=== PATIENT | female | born 1955 | race Caucasian/White ===

== ENCOUNTER 2016-11-29 09:00 | Outpatient (CLI) | payer MEDICARE | END 2016-11-29 09:01 | disposition home or self-care (01) | DX: R00.0 Tachycardia, unspecified (principal) ==

== ENCOUNTER 2016-12-07 10:11 | Day surgery (SDC) | payer MEDICARE ==
[~2016-12-07 10:11] MED LIST: ceFAZolin 2 GM/50 ML 50 ML IV ONE
[2016-12-07] MEDS ORDERED: ONDANSETRON 4 MG/2 ML VIAL IVP ONE (11:00)
[2016-12-07] MEDS ORDERED: fentaNYL 100 MCG/2 ML VIAL IVP ONE (11:00)
[2016-12-07] MEDS ORDERED: PROPOFOL 200 MG/20 ML VIAL IVP ONE (11:00)
[2016-12-07] MEDS ORDERED: MIDAZOLAM 2 MG/2 ML VIAL IVP ONE (11:00)
[2016-12-07] MEDS ORDERED: LIDOCAINE-MPF 2% 5 ML VIAL IM ONE (11:00)
[2016-12-07] MEDS ORDERED: LACTATED RINGERS 1,000 ML IV ONE ×3 (13:00→14:38)
[2016-12-07] MEDS ORDERED: BUPIVACAINE 0.5% PF 30 ML VIAL SUBQ ONE ×2 (14:04)
[2016-12-07] MEDS ORDERED: oxyCOD/ACETAMIN 5 MG/325 MG TABLET PO ONE (15:14)
== END 2016-12-07 10:12 | disposition home or self-care (01) ==
PROC: 05H633Z Insertion of Infusion Device into Left Subclavian Vein, Percutaneous Approach (ICD-10-PCS; principal; 2016-12-07 11:00)
DX: C50.912 Malignant neoplasm of unspecified site of left female breast (principal); C78.00 Secondary malignant neoplasm of unspecified lung; Z79.82 Long term (current) use of aspirin; I49.9 Cardiac arrhythmia, unspecified; R03.0 Elevated blood-pressure reading, without diagnosis of hypertension; Z80.42 Family history of malignant neoplasm of prostate; Z80.49 Family history of malignant neoplasm of other genital organs; E11.9 Type 2 diabetes mellitus without complications; Z92.21 Personal history of antineoplastic chemotherapy; Z79.84 Long term (current) use of oral hypoglycemic drugs
CPT/HCPCS: 36561; A9270; C1788; J0690; J7120

== ENCOUNTER 2017-01-10 16:22 | Emergency (ER) | payer MEDICARE ==
[2017-01-10] MEDS ORDERED: SODIUM CHLORIDE 0.9% 1,000 ML IV ONE (17:10)
[2017-01-10] MEDS ORDERED: IOPAMIDOL-300 100 ML VIAL IVP ONE (17:51)
== END 2017-01-10 19:10 | disposition home or self-care (01) ==
DX: E86.0 Dehydration (principal); C50.919 Malignant neoplasm of unspecified site of unspecified female breast; C78.00 Secondary malignant neoplasm of unspecified lung; K21.9 Gastro-esophageal reflux disease without esophagitis; Z79.82 Long term (current) use of aspirin
CPT/HCPCS: 71275; 99283; 99284; Q9967

== ENCOUNTER 2017-02-28 15:07 | Inpatient (IN) | payer MEDICARE ==
[2017-02-28] MEDS ORDERED: FUROSEMIDE 40 MG/4 ML VIAL IVP STA (18:50)
[2017-02-28] MEDS ORDERED: FUROSEMIDE 40 MG/4 ML VIAL ONE (19:12)
[2017-02-28] MEDS ORDERED: MORPHINE 2 MG/ML SYRINGE IVP PRN (20:08)
[2017-02-28] MEDS ORDERED: ONDANSETRON 4 MG/2 ML VIAL IVP PRN (20:08)
[2017-02-28] MEDS ORDERED: HYDROcod/ACETAM 7.5 MG/325 MG TABLET PO PRN (20:59)
[2017-02-28] MEDS ORDERED: INSULIN NPH HUMAN 100 UNIT/1 ML 10 ML MDV SUBQ SCH (21:00)
[2017-02-28] MEDS: SODIUM CHLORIDE FLUSH 0.9% 10 ML SYRINGE IVP SCH (22:17)
[2017-02-28] MEDS: INSULIN ASPART 300 UNIT/3 ML PEN SUBQ SCH (22:18)
[2017-02-28] MEDS: MORPHINE ER 15 MG TABLET PO SCH (22:18)
[2017-03-01] MEDS ORDERED: FUROSEMIDE 40 MG/4 ML VIAL IVP SCH (06:00)
[2017-03-01] MEDS: MORPHINE ER 15 MG TABLET PO SCH (06:06)
[2017-03-01] MEDS: SODIUM CHLORIDE FLUSH 0.9% 10 ML SYRINGE IVP SCH (06:07)
[2017-03-01] MEDS ORDERED: PANTOPRAZOLE 40 MG TABLET PO SCH (07:00)
[2017-03-01] MEDS: INSULIN ASPART 300 UNIT/3 ML PEN SUBQ SCH ×2 (07:42→12:22)
[2017-03-01] MEDS: SODIUM CHLORIDE FLUSH 0.9% 10 ML SYRINGE IVP PRN ×3 (07:42→13:44)
[2017-03-01] MEDS: MAGNESIUM SULFATE 2 GRAM 50 ML IV SCH ×2 (07:42→08:46)
[2017-03-01] MEDS ORDERED: INSULIN NPH HUMAN 100 UNIT/1 ML 10 ML MDV SUBQ SCH (08:00)
[2017-03-01] MEDS ORDERED: ENOXAPARIN 40 MG/0.4 ML SYRINGE SUBQ SCH (09:00)
[2017-03-01] MEDS ORDERED: VENLAFAXINE ER 75 MG CAPSULE PO SCH (09:00)
[2017-03-01] MEDS ORDERED: POLYETHYLENE GLYCOL 3350 17 GM PACKET PO SCH (09:00)
[2017-03-01] MEDS ORDERED: FUROSEMIDE 20 MG/2 ML VIAL IVP ONE (10:52)
== END 2017-03-01 14:21 | disposition home or self-care (01) | DRG 641 ==
DX: E87.70 Fluid overload, unspecified (principal); R09.02 Hypoxemia; C50.919 Malignant neoplasm of unspecified site of unspecified female breast; C78.02 Secondary malignant neoplasm of left lung; C78.01 Secondary malignant neoplasm of right lung; J96.11 Chronic respiratory failure with hypoxia; C78.00 Secondary malignant neoplasm of unspecified lung; D64.9 Anemia, unspecified; D59.1 Other autoimmune hemolytic anemias; I11.9 Hypertensive heart disease without heart failure; E83.42 Hypomagnesemia; D70.1 Agranulocytosis secondary to cancer chemotherapy; T45.1X5A Adverse effect of antineoplastic and immunosuppressive drugs, initial encounter; C50.212 Malignant neoplasm of upper-inner quadrant of left female breast; E66.9 Obesity, unspecified; E11.9 Type 2 diabetes mellitus without complications; M54.9 Dorsalgia, unspecified; M79.7 Fibromyalgia; G89.29 Other chronic pain; D50.9 Iron deficiency anemia, unspecified; Z79.4 Long term (current) use of insulin; Z79.82 Long term (current) use of aspirin; Z79.891 Long term (current) use of opiate analgesic; Z79.899 Other long term (current) drug therapy; Z95.828 Presence of other vascular implants and grafts; Z68.39 Body mass index [BMI] 39.0-39.9, adult

== ENCOUNTER 2017-04-16 13:49 | Outpatient (CLI) | payer MEDICARE ==
[2017-04-16] MEDS ORDERED: GADOBUTROL 10 MMOL/10 ML SYRINGE IVP ONE (15:26)
--- NOTE | 2017-04-17 16:04 | MRI Report ---
EXAM: MRI BRAIN WITHOUT AND WITH CONTRAST EXAM DATE: 04/16/2017 03:56 PM. CLINICAL HISTORY: 61-year-old woman with right-sided headaches. Patient has history of breast cancer with lung metastases. COMPARISON: 05/28/2014. TECHNIQUE: Multiplanar, multisequence T1-weighted and fluid-sensitive MR sequences of the brain were performed. Sequences optimized for routine evaluation. Other: High resolution sequences through the o rbits were performed. Without and with IV Contrast: 7 cc Gadavist. FINDINGS: Parenchyma: Geographic region of FLAIR hyperintensity is present in the superficial right frontal lob e underlying the enhancing extra-axial/intraosseous mass described below, new compared to the 014 exam and most consistent with vasogenic edema. No definite intraparenchymal enhancement. The remainder of the parenchyma demonstrates moderate burden of nonspecific FLAIR hyperintensities in the deep cerebral and para ventricle and white matter as well as the tiffany, most consistent with sequ elae of chronic small vessel ischemic disease. The signal abnormality in the tiffany is increased compar ed to 2014 exam, but the supratentorial component is stable. No evidence of intractable hemorrhage or acute infarct. Pituitary: Unremarkable. Ventricles and Extra-axial Spaces: Ventricles are symmetric and normal in size for age, unchanged. Ex tra-axial spaces demonstrate nodular enhancement overlying the anterior right frontal lobe and associ ated with heterogeneous enhancement in the underlying right frontal bone. The dural involvement measu res approximately 4.3 cm and the enhancement projects inward approximately 12 mm, displacing the pare nchyma. Additionally, intraosseous enhancement in the left parietal bone extends to the dura with min imal intracranial extension. Orbits and cavernous sinuses: Globes are intact and normal in shape. Optic nerves and chiasm are symm etric and normal in caliber without definite signal abnormality or abnormal enhancement. Intraconal a nd extraconal spaces are normal without mass lesion, fat stranding, or abnormal enhancement. Cavernou s sinuses are symmetric and normal in size. No evidence of mass lesion. Sinuses: Paranasal sinuses and mastoid air cells are clear. Major Vascular Flow Voids: Intact. Dural Venous Sinuses and Major Central Veins: Patent on post-contrast images. Other: Patchy intraosseous enhancement and T2 hyperintensity is present centered in the right frontal bone and left parietal bone. The frontal bone enhancement is somewhat discontinuous but measures up to 7.2 cm extending into the temporal bone. No definite expansion of the frontal bone, but there is h yperostosis frontalis, as before. Enhancement in the left parietal bone is more avid and measures bert roximately 5.8 cm in diameter. The bone appears expanded. These findings are new compared to the 05/14 exam. IMPRESSION: 1. Enhancing right frontal bone intraosseous lesion with associated nodular intracranial component al shayna the underlying dura, new compared to the MRI and most consistent with metastasis. The i ntracranial component displaces the subjacent frontal lobe and results in marked vasogenic edema, con cerning for invasion. 2. Enhancing intraosseous lesion in the left parietal bone with minimal intracranial extension, also new compared to 2014 MRI and most consistent with metastasis. 3. Normal MRI of the orbits. No evidence of mass lesion or abnormal enhancement. 4. Moderate white matter changes, progressed in the tiffany compared to the 2013 exam. [facility] Referring Provider Line: [phone] SITE ID: [id number]
--- NOTE | 2017-04-17 16:33 | MRI Report ---
EXAM MRA BRAIN EXAM DATE: 04/16/2017 03:56 PM. CLINICAL HISTORY: RT SIDED HEADACHES. COMPARISON: None. TECHNIQUE: Multiplanar, multisequence MRA sequences of the brain were performed. Other: None. Post-pr ocessing: Multiplanar 3D MIP reconstructions. IV Contrast: None. Stenosis evaluation by NASCET criteria. FINDINGS: RIGHT Internal Carotid (ICA): No aneurysm, stenosis or anomaly. Middle Cerebral (MCA): No aneurysm, stenosis or anomaly. Anterior Cerebral (ALLYN): No aneurysm, stenosis or anomaly. Posterior Cerebral (COMMERCIAL CONSTRUCTION PROJECT MANAGER): No aneurysm, stenosis or anomaly. Posterior Communicating (P-COM): Not definitively seen. No aneurysm or vascular abnormality. Vertebral: No aneurysm, stenosis or anomaly in the visualized upper vertebral artery. LEFT Internal Carotid (ICA): No aneurysm, stenosis or anomaly. Middle Cerebral (MCA): No aneurysm, stenosis or anomaly. Anterior Cerebral (ALLYN): No aneurysm, stenosis or anomaly. Posterior Cerebral (COMMERCIAL CONSTRUCTION PROJECT MANAGER): No aneurysm, stenosis or anomaly. Posterior Communicating (P-COM): Not definitively seen. No aneurysm or vascular abnormality. Vertebral: No aneurysm, stenosis or anomaly in the visualized upper vertebral artery. MIDLINE Anterior Communicating (A-COM): No aneurysm, stenosis or anomaly. Basilar artery: No aneurysm, stenosis, or anomaly. Other: None. IMPRESSION: Normal brain MRA. No stenoses or aneurysms. [facility] Referring Provider Line: [phone] SITE ID: [id number]
== END 2017-04-16 13:50 | disposition home or self-care (01) ==
LOC: DI 13:49
PROVIDERS: ATTEND Ophthalmology
DX: G93.9 Disorder of brain, unspecified (principal); M89.9 Disorder of bone, unspecified
CPT/HCPCS: 70544; 70553; A9585

== ENCOUNTER 2017-04-25 12:15 | Outpatient (CLI) | payer MEDICARE ==
--- NOTE | 2017-04-25 17:34 | Nuclear Medicine Prelim Report ---
Exam: NM Bone Whole Body IMPRESSION: Normal bone scan. [facility] SITE ID: [id number]
--- NOTE | 2017-04-25 17:37 | Nuclear Medicine Report ---
EXAM: BONE SCAN EXAM DATE: 04/25/2017 12:59 PM. CLINICAL HISTORY: BREAST CANCER. COMPARISON: 09/01/2016. TECHNIQUE: Following the intravenous administration of 30 mCi of technetium 99m MDP and an appropriat e delay, a whole-body scan was performed in anterior and posterior projections. Site-specific spot vi ews of the region of interest were obtained in various projections. FINDINGS: Exam Quality: Normal overall osseous radiotracer uptake. Physiological tracer uptake in bilateral col lecting systems. Skull: No focal uptake. Thorax: No focal lesions in ribs or sternum. Pelvis: No focal lesions. Spine: No focal uptake in the cervical or thoracic or lumbar spine. IMPRESSION: Normal bone scan. [facility] Referring Provider Line: [phone] SITE ID: [id number]
== END 2017-04-25 12:16 | disposition home or self-care (01) ==
LOC: DI 12:15
PROVIDERS: ATTEND Internal Medicine Hematology & Oncology
DX: C50.919 Malignant neoplasm of unspecified site of unspecified female breast (principal)
CPT/HCPCS: 78306; A9503

== ENCOUNTER 2017-04-26 13:15 | Outpatient (CLI) | payer MEDICARE | END 2017-04-26 13:16 | disposition home or self-care (01) | LOC: SC 13:15 | PROVIDERS: ATTEND Specialist | DX: G47.30 Sleep apnea, unspecified (principal); G47.8 Other sleep disorders; G47.10 Hypersomnia, unspecified; R06.83 Snoring | CPT/HCPCS: 99205; G0463; 99212 ==

== ENCOUNTER 2017-05-27 21:33 | Outpatient (CLI) | payer MEDICARE | END 2017-05-27 21:34 | disposition home or self-care (01) | LOC: SC 21:33 | PROVIDERS: ATTEND Specialist | DX: G47.33 Obstructive sleep apnea (adult) (pediatric) (principal); G47.61 Periodic limb movement disorder | CPT/HCPCS: 95810 ==

== ENCOUNTER 2017-05-30 13:03 | Outpatient (CLI) | payer MEDICARE ==
--- NOTE | 2017-05-31 10:12 | CT Report ---
NONCONTRAST CT EXAM OF THE CHEST: 05/30/2017 CLINICAL HISTORY: This is a 61-year-old female who has metastatic breast cancer to lungs. COMPARISON: 03/04/2017 FINDINGS: Mediastinum demonstrates a Port-A-Cath with its tip in the superior vena cava. It enters the vascular system in the left subclavian vein. A few small benign-appearing lymph nodes are noted in the paratracheal region. There is a mildly enl arged lymph node in the right anterior carinal region measuring 1 cm in diameter. This was noted on preceding exam and is unchanged. This lymph node is nonspecific. There is a suggestion of a few sma ll calcified subcarinal lymph nodes. This probably is a result of old granulomatous disease. This f inding also is unchanged. Extensive metastatic lung disease is noted. Numerous small nodules are seen throughout the lung fiel ds. They vary in size from a few millimeters to 1.8 cm. The number of these metastatic nodules are too numerous to count. Most of these nodules were not evident on preceding exam dated 03/04/2017. Left breast once again demonstrates a mass within its upper outer quadrant measuring 2 cm. This mass contains numerous calcifications within it. The size of this mass is unchanged as compared to prece ding exam. Upper abdomen demonstrates a tiny calculus noted in association with the mid pole calyx of the left k idney. Bones show anterior spurring in the thoracic spine. IMPRESSION: 1. SIGNIFICANT PROGRESSION OF PREVIOUSLY NOTED METASTATIC LUNG DISEASE COMPARED TO 03/04/2017. N UMEROUS METASTATIC NODULES ARE NOTED THROUGHOUT THE LUNG DODD, TOO NUMEROUS TO COUNT. THEY VARY IN SIZE FROM A FEW MILLIMETERS TO 1.8 CM. THIS REPRESENTS A SIGNIFICANT CHANGE COMPARED TO PRECEDIN G EXAM. 2. TINY CALCULUS IS NOTED IN ASSOCIATION WITH THE MID POLE CALYX OF THE LEFT KIDNEY. JOB #: [id number] EXT JOB #:[id number]
== END 2017-05-30 13:04 | disposition home or self-care (01) ==
LOC: DI 13:03
PROVIDERS: ATTEND Internal Medicine Hematology & Oncology
DX: C50.912 Malignant neoplasm of unspecified site of left female breast (principal); C78.00 Secondary malignant neoplasm of unspecified lung
CPT/HCPCS: 71250

== ENCOUNTER 2017-05-31 12:40 | Outpatient (CLI) | payer MEDICARE ==
[2017-05-31] MEDS ORDERED: GADOBUTROL 7.5 MMOL/7.5 ML VIAL IVP ONE (13:42)
--- NOTE | 2017-06-01 08:34 | MRI Report ---
EXAM: MRI BRAIN WITHOUT AND WITH CONTRAST EXAM DATE: 05/31/2017 01:50 PM. CLINICAL HISTORY: Left breast cancer to lung. COMPARISON: MR brain without and with contrast 04/16/2017. TECHNIQUE: Multiplanar, multisequence T1-weighted and fluid-sensitive MR sequences of the brain were performed. Sequences optimized for routine evaluation. Other: None. Without and with IV Contrast: 7 m L IV Gadavist. FINDINGS: Redemonstrated are areas of osseous and dural enhancement in the right frontal lobe and left parietal lobe, compatible with osseous and dural metastases. Enhancing dural thickening over the right fronta l osseous metastasis measures up to 5 mm, unchanged. Enhancing dural thickening over the left parieta l osseous metastasis measures up to 4 mm, unchanged. There is a focal enhancing T2 hyperintensity in the right occipital condyle measuring 7.6 mm, most li macy metastatic disease. This is best seen on image 3 series 1101. Focal abnormal marrow enhancement within the right zygoma (axial image 10 series 1101) compatible wit h metastatic disease. This has not significantly changed compared to 04/16/2017, without evidence for dural thickening or intraorbital extension. There is unchanged vasogenic edema in the subcortical right frontal lobe deep to the right frontal du ral/osseous metastasis, unchanged compared to 04/16/2017. Scattered T2 hyperintensities are seen in the deep cerebral white matter with symmetric confluent T2 hyperintensity in the periventricular peritrigonal white matter, unchanged. Ill-defined T2 hyperinten sity demonstrated in the central tiffany, unchanged. There is no acute infarct, intracranial hemorrhage, midline shift or hydrocephalus. Major intracrania l flow voids are preserved. Gradient echo sequence demonstrates no focal abnormalities. Limited evaluation of the arterial and dural venous sinus structures are unremarkable. IMPRESSION: 1. No significant change in areas of osseous and dural metastases in the right frontal and left parie george calvaria/dura compared to 04/16/2017. Vasogenic edema adjacent to the right frontal dural enhancem ent again demonstrated. Areas of enhancement extending from the dura into the surface of the right fr ontal parenchyma suspicious for parenchymal invasion. 2. Focal abnormal enhancement within the right zygoma compatible with osseous metastasis, without int raorbital extension. There is minimal associated dural thickening and enhancement compatible with dur al metastasis. This has not significantly changed compared to 04/16/2017. 3. Focal rounded 7.6-mm enhancement in the right occipital condyle suspicious for osseous metastasis. This has not significant change compared to 04/16/2017. [facility] Referring Provider Line: [phone] SITE ID: [id number]
== END 2017-05-31 12:41 | disposition home or self-care (01) ==
LOC: DI 12:40
PROVIDERS: ATTEND Internal Medicine Hematology & Oncology
DX: C50.912 Malignant neoplasm of unspecified site of left female breast (principal); C78.00 Secondary malignant neoplasm of unspecified lung
CPT/HCPCS: 70553

== ENCOUNTER 2017-06-01 10:06 | Outpatient (CLI) | payer MEDICARE ==
--- NOTE | 2017-06-01 22:55 | CONSULTATION NOTE ---
Palliative Care Consultation - Referral Referring Provider: Dr. 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 She was originally dx after an ED visit for back pain/kidney stones, was found on work up to have pulmonary mets. Had bx of mass without definitive dx, but found in work up to be Breast. She started on a clinical trial 03/2014-04/2016 with letrozole/ribociclib; then xeloda with progression,;navelbine from 11/2016 with 11 cycles partial remission; Faslodex/afinitor since 03/21/2017 most recently with progression of lung mets noted on CT yesterday. She has new cranial dual mass with vasogenic edema, brain parenchymal irritation and headaches. Has developed increasing balance, cognitive changes, and has vision changes. She had radiation consult, but has not committed to treatment at this time. She is seeing palliative care for symptom management, psychosocial support and anticipatory guidance. 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 Medical/Surgical History - Past Medical History Cardiovascular: reports: Congestive heart failure, Hypertension, Arrhythmia Respiratory: reports: Shortness of breath, Other (progressive lung mets, hypoxia ) Neuro: reports: Headache/migraine, Peripheral neuropathy (CIPN), Other (brain mets) Endocrine/Autoimmune: reports: Type 2 diabetes GI: reports: GERD, Chronic diarrhea, Diverticulitis HEALTH INFORMATION SPECIALIST: reports: Breast cancer : reports: Kidney stones HEENT: reports: Other (Recent changes in vision with new mets, blurry on right) Psych: reports: Anxiety Musculoskeletal: reports: Fibromyalgia, Fatigue Derm: reports: Rosacea MRSA Hx?: No - Past Surgical History /HEALTH INFORMATION SPECIALIST: reports: section - Substance History Use: Uses substance without health or social issues: Alcohol Social History - Living Situation Living arrangement: At home Living Situation: With spouse/s.o. (Bebo has been together over 9 years, retired and has been caregiver. has 4 sisters most nurses) Support System: Patient is hoping sister can take FMLA to support her as she is declining. She has many good friends and family. She has a son who is in [place], and getting in July, who is 31, and a daughter 27 who is struggling with mother 's decline. Family History - Family History Family History: Mother: (father 86 infection mother of heart attack, but did have uterine cancer), Father: , Sister: , Cancer Medications/Allergies - Medications Home Medications: Ambulatory Orders Medication Instructions Recorded Confirmed Carvedilol [Coreg] 3.125 mg PO BID 01/02/14 05/16/17 Losartan [Cozaar] 25 mg PO DAILY 01/02/14 05/16/17 Omeprazole [PriLOSEC] 20 mg PO BID 01/02/14 06/01/17 Venlafaxine HCl [Effexor Xr] 75 mg PO DAILY 01/02/14 05/16/17 Cholecalciferol (Vitamin D3) 2,000 unit PO DAILY 05/20/14 05/16/17 [Vitamin D3] Ubidecarenone [Coq-10] 100 mg PO DAILY 05/20/14 05/16/17 Alprazolam [Xanax] 0.125 - 0.25 mg PO DAILY PRN 05/29/14 05/16/17 HYDROcodone/ACET 7.5/325 [[place] 1 tab PO Q4HR PRN 07/10/14 05/16/17 7.5/325] Ondansetron HCl [Zofran] 8 mg PO Q8H PRN 08/25/16 05/16/17 Aspirin [Aspirin EC] 81 mg PO DAILY 09/06/16 05/16/17 Ivabradine HCl [Corlanor] 5 mg PO BID 12/07/16 05/16/17 Excipial Cream 1 ea TOP DAILY PRN 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 syndrome Meloxicam [Mobic] 15 mg PO DAILY 02/28/17 05/16/17 Magnesium Oxide [Mag Ox] 400 mg PO BID 03/01/17 05/16/17 metFORMIN [Glucophage] 500 mg PO BIDWM 03/01/17 05/16/17 Dexamethasone [Decadron] 2 mg PO BID 04/19/17 06/02/17 Morphine Sulfate [Morphine Sulfate 30 mg PO Q12H 04/26/17 06/01/17 ER] - Allergies Allergies/Adverse Reactions: Allergies Allergy/AdvReac Type Severity Reaction Status Date / Time No Known Drug Allergies Allergy Verified 05/28/14 16:51 Review of Systems - Constitutional Constitutional: reports: Fatigue, Malaise, Weakness, Poor appetite - Eyes Eyes: reports: Blurred vision, Vision loss - Ears, Nose & Throat Ears, Nose & Throat: reports: Hearing loss, Other (has rx for nystatin, has not picked up or using does not feel mouth uncomfortable and no yeast evident on exam) - Cardiovascular Cariovascular: reports: Edema, Exertional dyspnea, Decr. exercise tolerance - Respiratory Respiratory: reports: Cough, Snoring, SOB at rest, SOB with exertion - Gastrointestinal Gastrointestinal: reports: Nausea, Reflux/heartburn, Bloating, Poor appetite. denies: Abdominal pain, Constipation - Genitourinary Genitourinary: reports: Incontinence. denies: Dysuria - Musculoskeletal Musculoskeletal: reports: Muscle pain, Muscle aches, Stiffness, Muscle weakness , Other (Fall yesterday, hurt elbow and hit head, declined further w/u at ED had it after MRI. Does not feel change in symptoms) - Integumentary Integumentary: reports: Other (scrap and bruise from fall on right elbow) - Neurological Neurological: reports: General weakness, Headache, Numbness, Memory problems, Abnormal gait, Slurred speech - Psychiatric Psychiatric: reports: Depression, Anxiety - Endocrine Endocrine: reports: Other (BS 311 on labs, has been escalating, not checking has been on NPH in past when on prednisone, is so exhausted does not want to "deal with it" after counseling agreed) - Hematologic/Lymphatic Hematologic/Lymphatic: reports: Anemia, Bruising, Petechiae - All Other Systems All Other Systems: reports: Reviewed and negative Physical Examination - Vital Signs Pulse Rate: 89 Respiratory Rate: 18 O2 Saturation: 99 Blood Pressure: 139/75 - Physical Exam General Appearance: positive: Mild distress, Anxious Eyes Bilateral: positive: Other (pupils equal, no dilitation, difficulty focusing, squints right eye) ENT: negative: Pharyngeal erythema, Oral lesions Neck: positive: Trachea midline, Other (thickened neck) Respiratory: positive: Breath sounds nml. negative: Wheezes, Rales, Rhonchi Cardiovascular: positive: Regular rate & rhythm Abdomen: positive: Nml bowel sounds. negative: No distention Skin: positive: Other (large fading hematoma and scrap on right elbow from fall , no s/s infection) Extremities: positive: No pedal edema Neurologic/Psychiatric: positive: Oriented x3, Weakness, Depressed mood/affect Palliative Care - POLST Patient has POLST: No POLST Status: Full Code (Patient identifies sister as DPOA) Pain: Pain worsening, Location (headache pain; now with elbow pain from fall ; and bilateral neuropathy that is worsening with edema) Drowsiness: Mild (1-3), Comment (Up at night wandering) Nausea: Mild (1-3) (Relates to GERD, had omeprazole doubled) Anxiety: Moderate (4-6) Dyspnea: Severe (7-10) (Patient with poor activity tolerance. Has oxygen at home.) Anorexia: Moderate (4-6) Insomnia: Sleeps poorly Constipation: No Feelings of wellbeing/Perceived Quality of Life: Worsening Performance Status: Previous level of function prior to this episode [Has had decline last several weeks, has been able to ambulate short distances, tolerate outings]. Current level of functioning [Difficulty secondary to balance and strength walking up and down stairs, tolerating any increase in activity, needing more assistance to manage daily tasks]. Palliative Care Performance Status [50%]. Patient quite distressed with declining functional status and caregiver concerned, now with fall with injury. - Palliative Care Discussion: Surrogate decision maker [[place], will need to get paper work]. Patient/Family understanding of the illness [Patient understanding of seriousness of illness and decline and feeling much more vulnerable with new dx of brain mets and decline in functions status]. Information preferences [ Upfront and honest]. Most important goals [Wants to go on annual camping trip to [facility], leaving after appointment today, planning to just "be". Other important goal is son's wedding in July, is hoping her illness will not interfer, had declined radiation because did not want to be "fuzzy" ]. Patient/Family concerns [Patient concerned about impact on others, and ongoing decline. Bebo concerned about being able to take care of her as she approaches end of life, needing support. Discussed patient's changes, most difficult for both Bebo and patient have been the cognitive, and now balance and implications for her ongoing support and care. Patient hoping her sister can come and "just take care" manage her medications and be with her, but most likely not possible at this time. In discussing her advanced directives she wants to be a "FULL CODE" when explored this further, she wants to [place] out as much life as possible. Attempted to define threshold for what is quality of life or acceptable limits vs suffering. She is aware her sister who is her DPOA is more "cynical" and is why she picked her. Did address the questions about the "when" of hospice, though the support would be welcome, she wants to continue treatments, but Bebo reassured when transition time came would have team support. Results - Lab Results Lab results reviewed: Yes Lab and Imaging Results: Patient wanted to know results of scans, briefly reviewed. Will follow up with oncologist next week. Impression and Recommendations - Palliative Care Impression: This is a eugene 61 year old woman presenting with Stage IV Breast Cancer with progressive lung mets and new metastatic brain mets. She presents with high symptom burden, functional and cognitive decline. She has specific goals for making sons wedding in July, and family vacation this week. Recommendations/Counseling Done: 1. Brain mets. Patient presents with forgetfulness, word finding, and balance issues resulting in fall and injury. Her headache is managed with her MS Contin 30 mg BID and intermittent hydrocodone. 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 Patient reports currently taking 2 mg Decadron BID, she reports she is to be on 3/2 mg but dislikes facial swelling. Records show in review she has 4 mg tabs prescribed, will try and get clarification. Counseled to go back to prescribed dose, and will follow up to increase with oncologist and depending on findings of medication dosing. 2. Diabetes type II uncontrolled. Blood sugar as been increasing, most likely in response to steroids. 05/30 311, suspect this is adding to her symptoms. Has used NPH in past and managed by CDE in clinic. Requested she start at least 10 units after checking, log blood sugars, and referral made for visit for Tuesday. 3. Muscle weakness. Recommended seated /rolling 4ww for safety and to assist with energy conservation, pace ambulation. Handicapp parking permit filled out. 4. Depression, escalating. Snf depression, but probably impacted not only by situation but steriods. Has been on Effexor termite control technician, reports short acting dose not work for her in discussing benefits/burdens of titrating up, will add 37.5 ER to current prescription of reporte d75 mg ER. 5. Advanced Care Planning, Initiated goals of care conversation, patient currently after discussion of POLST wants still to be FULL CODE. Focus on quality and quantity, wants to meet goal of getting to son's wedding in July, recognizing decline but hopeful will still be able. Struggling with changes in both functional/cognitive level. Time Spent: 75 minutes with greater than 50% done in counseling regarding symptom management , goals of care, and anticipatory guidance.
== END 2017-06-01 10:07 | disposition home or self-care (01) ==
LOC: PC 10:06
PROVIDERS: ATTEND Nurse Practitioner Adult Health
DX: Z51.5 Encounter for palliative care (principal); C50.919 Malignant neoplasm of unspecified site of unspecified female breast; C78.00 Secondary malignant neoplasm of unspecified lung; C79.31 Secondary malignant neoplasm of brain; R51 Headache; E11.65 Type 2 diabetes mellitus with hyperglycemia; Z79.4 Long term (current) use of insulin; M62.81 Muscle weakness (generalized); F32.9 Major depressive disorder, single episode, unspecified; R41.3 Other amnesia; M79.7 Fibromyalgia; I50.9 Heart failure, unspecified; I10 Essential (primary) hypertension; I49.9 Cardiac arrhythmia, unspecified; R06.02 Shortness of breath; G62.9 Polyneuropathy, unspecified; R19.7 Diarrhea, unspecified; K21.9 Gastro-esophageal reflux disease without esophagitis; K57.92 Diverticulitis of intestine, part unspecified, without perforation or abscess without bleeding; N20.0 Calculus of kidney; F41.9 Anxiety disorder, unspecified; Z79.82 Long term (current) use of aspirin; Z79.891 Long term (current) use of opiate analgesic; R05 Cough; R11.0 Nausea; R32 Unspecified urinary incontinence; R26.9 Unspecified abnormalities of gait and mobility; D64.9 Anemia, unspecified; Z91.81 History of falling
CPT/HCPCS: 99205

== ENCOUNTER 2017-06-26 18:12 | Outpatient (CLI) | payer MEDICARE | END 2017-06-26 18:13 | disposition critical access hospital (66) | LOC: EMS 18:12 | PROVIDERS: ATTEND Surgery | DX: R52 Pain, unspecified (principal) ==